=== PATIENT | female | born 1980 | race Caucasian/White ===

== ENCOUNTER 2017-08-08 16:43 | Observation (INO) | payer BC ==
[~2017-08-08] VITALS: Ht 162.6 cm; Wt 73.0 kg
[2017-08-08] MEDS ORDERED: ZOLPIDEM TARTRATE 5 MG TAB PO PRN (17:15)
--- NOTE | 2017-08-08 17:30 | HHI.HP ---
HPI Chief Complaint FUNNELING OF CERVIX, SHORT CERVIX Date Seen: Aug 08, 2017 Time Seen: 17:12 Travel History International Travel<30 Days: No Contact w/Intl Traveler<30Days: No Known Affected Area: No History of Present Illness HPI PT 20 WEEKS U/S SHOWED CX FUNNELING CERVIX SHORT AT 1 CM Weeks Gestation: 20 Para: 2 (1 26 WEEK STILLBORN) : 3 History Past Medical History Narrative Medical ACID REFLUX Obstetric History Obstetric History ADVANCED MATERNAL AGE PREVIOUS STILLBORN AT 26 WEEKS (2006) INCOMPETENT CERVIX (2014) Past Surgical History Narrative Surgical D &C X2 TEETH SURGERY Family History Narrative Family History PATERNAL GRANDMOTHER BREAST CANCER MATERNAL GRANDMOTHER BREAST CANCER FATHER HIGH BLOOD PRESSURE Social History Alcohol Use: No Tobacco Use: No Substance Abuse: No Allergies-Medications (Allergen,Severity, Reaction): Coded Allergies: Sulfa (Sulfonamide Antibiotics) (Unverified Allergy, Severe, HIVES, anaphylaxis, 01/15/17) peanut (Unverified Allergy, Intermediate, HIVES, 01/15/17) Home Meds Active Scripts Ibuprofen (Motrin 600 Mg Tab) 600 Mg Tab, 600 MG PO Q6H for pain, #30 TAB 1 Refill Prov:Renetta Martin MD 07/25/14 Oxycodone W/ Acetaminophen (Oxycodone/Acetaminophen 5-325 mg/5Ml) 1 Tab Tab, 1 TAB PO Q4H for pain, #20 TAB 0 Refills Prov:Renetta Martin MD 07/25/14 Oseltamivir Phosphate 75 mg (Tamiflu 75 mg) 75 Mg Cap, 1 CAP PO BID for 5 Days, CAP 0 Refills Prov:AIDEN ROBERTS MD R2 06/07/14 Polymyxin B-Trimethoprim (Polytrim) Op Tete, 1 DROP EACH EYE QID for 7 Days Prov:CHARO STRINGER M.D. 08/29/12 Review of Systems Except as stated in HPI: all other systems reviewed are Neg Physical Exam Narrative GENERAL: Well-nourished, well-developed patient. SKIN: Warm and dry. HEAD: Normocephalic and atraumatic. EYES: No scleral icterus. No injection or drainage. ENT: No nasal drainage Airway patent. NECK: Supple, trachea midline. No JVD. CARDIOVASCULAR: Regular rate and rhythm without murmurs, gallops, or rubs. RESPIRATORY: Breath sounds equal bilaterally. No accessory muscle use. ABDOMEN/GI: Abdomen soft, non-tender, bowel sounds present, no rebound, no guarding Gravid to [-20 weeks size GENITOURINARY: NO EXAMINED Membranes: [intact] Uterine Contractions: [NO] FHT's: PRESENT WITH DOPPLER EXTREMITIES: No cyanosis or edema. BACK: Nontender without obvious deformity. No CVA tenderness. NEUROLOGICAL: Awake and alert. Motor and sensory grossly within normal limits. Five out of 5 muscle strength in all muscle groups. Normal speech. Caprini VTE Risk Assessment Caprini VTE Risk Assessment: No/Low Risk (score <= 1) Caprini Risk Assessment Model Point Value = 1 Point Value = 2 Point Value = 3 Point Value = 5 Age 41-60 Minor surgery BMI > 25 kg/m2 Swollen legs Varicose veins or History of unexplained or recurrent spontaneous Oral contraceptives or hormone replacement Sepsis (< 1 month) Serious lung disease, including pneumonia (< 1 month) Abnormal pulmonary function Acute myocardial infarction Congestive heart failure (< 1 month) History of inflammatory bowel disease Medical patient at bed rest Age 61-74 Arthroscopic surgery Major open surgery (> 45 min) Laparoscopic surgery (> 45 min) Malignancy Confined to bed (> 72 hours) Immobilizing plaster cast Central venous access Age >= 75 History of VTE Family history of VTE Factor V Leiden Prothrombin [id number] Lupus anticoagulant Anticardiolipin antibodies Elevated serum homocysteine Heparin-induced thrombocytopenia Other congenital or acquired thrombophilia Stroke (< 1 month) Elective arthroplasty Hip, pelvis, or leg fracture Acute spinal cord injury (< 1 month) Prophylaxis Regimen Total Risk Factor Score Risk Level Prophylaxis Regimen 0-1 Low Early ambulation 2 Moderate Order ONE of the following: *Sequential Compression Device (SCD) *Heparin 5000 units SQ BID 3-4 Higher Order ONE of the following medications: *Heparin 5000 units SQ TID *Enoxaparin/Lovenox 40 mg SQ daily (WT < 150 kg, CrCl > 30 mL/min) *Enoxaparin/Lovenox 30 mg SQ daily (WT < 150 kg, CrCl > 10-29 mL/min) *Enoxaparin/Lovenox 30 mg SQ BID (WT < 150 kg, CrCl > 30 mL/min) AND/OR *Sequential Compression Device (SCD) 5 or more Highest Order ONE of the following medications: *Heparin 5000 units SQ TID (Preferred with Epidurals) *Enoxaparin/Lovenox 40 mg SQ daily (WT < 150 kg, CrCl > 30 mL/min) *Enoxaparin/Lovenox 30 mg SQ daily (WT < 150 kg, CrCl > 10-29 mL/min) *Enoxaparin/Lovenox 30 mg SQ BID (WT < 150 kg, CrCl > 30 mL/min) AND *Sequential Compression Device (SCD) Data Data Orders Orders 1/2 Ns + Kcl 20 Meq Inj (2 Ns + Kcl 20 (08/08/17 18:00) Zolpidem (Ambien) (08/08/17 17:15) Docusate Sodium-Senna (Shweta-Colace) (08/09/17 09:00) Instruction (08/08/17 17:00) Diet Regular Basic (08/08/17 Dinner) Diet Npo (08/09/17 Breakfast) Vital Signs (Adult) MELANIE.Q4H (08/08/17 17:00) Activity Bed Rest (08/08/17 17:00) Complete Blood Count With Diff (08/08/17 17:00) Urinalysis - C+S If Indicated (08/08/17 17:00) Specimen To Be Collected PRN (08/08/17 17:00) Instruction (08/08/17 17:00) Assessment/Plan Problem List: (1) Incompetent cervix ICD Codes: N88.3 - Incompetence of cervix uteri (2) AMA (advanced maternal age) multigravida 35+ ICD Codes: O09.529 - Supervision of elderly multigravida, unspecified trimester Qualifiers: Qualified Codes: O09.522 - Supervision of elderly multigravida, second trimester (3) 20 weeks gestation of ICD Codes: Z3A.20 - 20 weeks gestation of (4) Short cervix during in second trimester ICD Codes: O26.872 - Cervical shortening, second trimester Assessment and Plan PT HAD AN U/S IN THE OFFICE ON 08/08 CERVIX WAS FUNNELING AND FOUND TO BE 1 CM IN LENGTH PT WAS EVALUATED BY PND AND THEY AGREED WITH OFFICE ASSESSMENT PT BEING ADMITTED NOW TO THE UNIT AFTER TAKING CARE OF GETTING HER CHILDREN SETTLED PT TO BE ON BEDREST IN [place] IVF NPO AFTER MIDNIGHT CERCLAGE PLACEMENT TOMORROW PLAN DISCUSSED WITH PT AND Discharge Planning CONSIDER DC WHEN PT STABLE Ashwini Roper Aug 08, 2017 17:30
[2017-08-08 17:35] VITALS: BP 110/68; PULSE 82
[2017-08-08 17:36] VITALS: RESP 16; TEMP 98.6
[2017-08-08] MEDS: 1/2 NS + KCL 20 MEQ INJ 1,000 ML IV SCH (18:46)
[2017-08-08 19:20] LABS: AUTOMATED NEUTROPHIL # 8.7 TH/MM3 (1.8-7.7); BASOPHIL % 0.3 % (0.0-2.0); EOSINOPHIL # 0.1 TH/MM3 (0-0.4); EOSINOPHIL % 0.9 % (0.0-4.0); HEMOGLOBIN 12.6 GM/DL (11.6-15.3); LYMPHOCYTE # 2.6 TH/MM3 (1.0-4.8); MEAN CELL VOLUME 89.8 FL (80.0-100.0); MEAN CORPUSCULAR HEMOGLOBIN 31.4 PG (27.0-34.0); MEAN PLATELET VOLUME 8.1 FL (7.0-11.0); MONO % 6.6 % (0.0-8.0); MONOCYTE # 0.8 TH/MM3 (0-0.9); NEUT % 71.2 % (16.0-70.0); PLATELET COUNT 267 TH/MM3 (150-450); RED BLOOD COUNT 4.01 MIL/MM3 (4.00-5.30); RED CELL DISTRIBUTION WIDTH 13.6 % (11.6-17.2); WHITE BLOOD COUNT 12.3 TH/MM3 (4.0-11.0)
[2017-08-08 19:48] LABS: BILIRUBIN, URINE NEG (NEG); BLOOD, URINE TRACE (NEG); GLUCOSE,URINE NEG (NEG); KETONE, URINE NEG (NEG); MUCUS URINE FEW /lpf (OCC); NITRITE,URINE NEG (NEG); PH, URINE 5.5 (5.0-8.5); SQUAMOUS EPITHELIAL CELL URINE 3 /hpf (0-5); URINE COLOR YELLOW (YELLW/STRAW); URINE LEUKOCYTE ESTERASE NEG (NEG)
[2017-08-08 20:08] VITALS: BP 111/67; PULSE 80
[2017-08-08 20:15] VITALS: RESP 18; TEMP 98.1
[2017-08-09] VITALS (9 sets, daily range): BP systolic 107–116; BP diastolic 62–68; PULSE 79–87; RESP 16–18; TEMP 97.7–98.2; O2SAT 96
[2017-08-09] MEDS: 1/2 NS + KCL 20 MEQ INJ 1,000 ML IV SCH ×3 (02:48→16:27)
[2017-08-09] MEDS ORDERED: FAMOTIDINE 20 MG/2 ML VIAL ONE (07:54)
[2017-08-09] MEDS ORDERED: ceFAZolin INJ 1,000 MG VIAL IV ONE ×2 (08:47→12:00)
[2017-08-09] MEDS ORDERED: DOCUSATE SODIUM 50 MG/SENNA 8.6 MG TAB PO SCH (09:00)
[2017-08-09] MEDS ORDERED: DO NOT ADM ANY ANTICOAGULANT DRUGS PRN (09:06)
[2017-08-09] MEDS ORDERED: PANTOPRAZOLE SOD 40 MG DELAYED RELEASE TAB PO SCH (10:00)
[2017-08-09] MEDS: LACTATED RINGER'S 1000 ML INJ 1,000 ML IV SCH ×2 (10:00→20:00)
[2017-08-09] MEDS ORDERED: PHENYLEPH/NS 1000 MCG/10 ML SYR IV ONE (12:00)
--- NOTE | 2017-08-09 14:02 | MP ---
cc: Renetta Martin MD DATE OF OPERATION: 08/09/2017 PREOPERATIVE DIAGNOSIS: Cervical incompetence. POSTOPERATIVE DIAGNOSIS: Cervical incompetence. PROCEDURE PERFORMED: Cervical cerclage. ANESTHESIA: Spinal. SURGEON: Renetta Martin MD FINDINGS: The cervix was approximately 1 cm long, closed at the external os. There was bulging above this level. There was no bulging bag. There was no discharge. There were no signs of infection or discharge. COMPLICATIONS: None. COUNTS: Correct. ESTIMATED BLOOD LOSS: Minimal. DISPOSITION: The patient tolerated the procedure well and went to the recovery room in good condition. INDICATION FOR THE PROCEDURE: This is a patient who came for a routine ultrasound yesterday and was found to have funneling of her internal cervical os. There was approximately 1 cm left of closed cervix on a transvaginal ultrasound. My quality control lab tech and I both visualized this and sent her immediately over to the center for a second option, which confirmed our diagnosis. She was brought in last night, put in [facility], gave her IV fluids to make sure she was not henry and to get a cervical cerclage this morning. PROCEDURE IN DETAIL: The patient was taken to the operating room, identified by name band and verbally. She was given a spinal anesthetic, prepped and draped in the dorsal lithotomy position and a weighted speculum was placed in the vagina after the examination under anesthesia. The cervix was grasped and a pursestring suture with #[address] needle was placed. We thought about putting an extra stitch; however, the cervix was quite small and I did not want to get near that bulging portion where I knew there was funneling of the cervix to avoid the complication of rupturing her membranes. At this point, we terminated the procedure, instruments were removed. She tolerated the procedure well and went to the recovery room in good condition. MD SUE RaphaelV/SUKHDEV , 01:27 PM , 02:00 PM
--- NOTE | 2017-08-09 14:18 | HHI.DCPOC ---
Discharge Care Plan Diagnosis: (1) Incompetent cervix (2) AMA (advanced maternal age) multigravida 35+ Report Symptoms to Your Doctor -Temperature above 100.5 degrees -Redness, of incision or excessive or foul smelling drainage -Unusual pain or calf pain -Increased vaginal bleeding -Painful or difficulty urinating -Feelings of extreme sadness or anxiety after 2 weeks Goals to Promote Your Health * To prevent worsening of your condition and complications * To maintain your health at the optimal level Directions to Meet Your Goals Take your medications as prescribed Follow your dietary instruction Follow activity as directed Ensure plenty of rest for recovery Drink fluids for hydration Keep your appointments as scheduled Take your immunizations and boosters as scheduled If your symptoms worsen call your PCP, if no PCP go to Urgent Care Center or Emergency Room Smoking is Dangerous to Your Health. Avoid second hand smoke Call the 24-hour crisis hotline for domestic abuse at Renetta Martin MD Aug 09, 2017 14:18
[2017-08-09] MEDS ORDERED: ACETAMINOPHEN/HYDROcodone 325 MG/5 MG TAB PO PRN (15:15)
[2017-08-09] MEDS: ACETAMINOPHEN 325 MG TAB PO PRN ×2 (20:15→21:15)
[2017-08-10 01:57] VITALS: BP 94/49; PULSE 79; RESP 18; TEMP 98.1
[2017-08-10] MEDS: 1/2 NS + KCL 20 MEQ INJ 1,000 ML IV SCH (02:00)
[2017-08-10 06:16] VITALS: RESP 18; TEMP 98.1
[2017-08-10 06:17] VITALS: BP 109/69; PULSE 79
[2017-08-10 08:08] VITALS: TEMP 98.4
[2017-08-10 08:09] VITALS: BP 96/55; PULSE 82
--- NOTE | 2017-08-10 09:08 | PD.OB.ANTE ---
Subjective Diagnosis: (1) Incompetent cervix (2) AMA (advanced maternal age) multigravida 35+ (3) 20 weeks gestation of (4) Short cervix during in second trimester Interval History s/p cerclage placement POD #1 , doing well on bedrest Objective Vital Signs Vital Signs Date Time Temp Pulse Resp B/P (MAP) Pulse Ox O2 Delivery O2 Flow Rate FiO2 08/10/17 08:09 82 96/55 (69) 08/10/17 08:08 98.4 08/10/17 06:17 79 109/69 (82) 08/10/17 06:16 98.1 18 08/10/17 01:57 98.1 18 08/10/17 01:57 79 94/49 (64) 08/09/17 19:48 82 18 112/68 (83) 08/09/17 19:48 98.2 08/09/17 17:24 98.0 08/09/17 17:23 85 109/63 (78) 08/09/17 13:00 97.7 08/09/17 12:36 16 08/09/17 12:00 79 107/62 (77) 08/09/17 11:50 75 16 96 Room Air 08/09/17 11:45 97.8 76 16 98/62 (74) 96 Room Air 08/09/17 11:30 76 16 95/60 (72) 97 Room Air 08/09/17 11:15 74 16 99/62 (74) 97 Room Air 08/09/17 10:45 75 16 100/63 (75) 97 Room Air 08/09/17 10:30 78 16 99/60 (73) 97 Room Air 08/09/17 10:15 75 16 101/60 (74) 96 Room Air 08/09/17 10:00 78 16 99/59 (72) 96 Room Air 08/09/17 09:45 77 16 98/59 (72) 96 Room Air 08/09/17 09:30 79 16 101/65 (77) 98 Room Air 08/09/17 09:15 77 15 98/63 (75) 98 Room Air Physical Exam GENERAL: Well-nourished, well-developed patient. CARDIOVASCULAR: Regular rate and rhythm without murmurs, gallops, or rubs. RESPIRATORY: Breath sounds equal bilaterally. No accessory muscle use. ABDOMEN/GI: Abdomen soft, non-tender. Fundus: [-] GENITOURINARY: External Genitalia: intact and normal in appearance Cervix: [-] deferred Dilatation: [-] Effacement: [-] Station: [-] Presentation: [-] Membranes: [-] Uterine Contractions: [-] FHT's: Category: [-] Baseline: [-] Reactive: [-] Variability: [-] Decels: [-] EXTREMITIES: No cyanosis or edema, non-tender, without signs of DVT. Assessment and Plan Problem List: (1) Incompetent cervix ICD Codes: N88.3 - Incompetence of cervix uteri (2) AMA (advanced maternal age) multigravida 35+ ICD Codes: O09.529 - Supervision of elderly multigravida, unspecified trimester Qualifiers: Qualified Codes: O09.522 - Supervision of elderly multigravida, second trimester (3) 20 weeks gestation of ICD Codes: Z3A.20 - 20 weeks gestation of (4) Short cervix during in second trimester ICD Codes: O26.872 - Cervical shortening, second trimester Assessment and Plan PT HAD AN U/S IN THE OFFICE ON 08/08 CERVIX WAS FUNNELING AND FOUND TO BE 1 CM IN LENGTH PT WAS EVALUATED BY PND AND THEY AGREED WITH OFFICE ASSESSMENT s/p cerclage POD #1, discharge home on complete bedrest f/u with Dr Mraio Hoffmann 08/13 Peggy Wallace MD Aug 10, 2017 09:08
== END 2017-08-10 09:39 | disposition home or self-care (01) ==
LOC: H2EB 16:43
PROVIDERS: ADMIT Obstetrics & Gynecology; ATTEND Obstetrics & Gynecology
DX: O34.32 Maternal care for cervical incompetence, second trimester (principal); O26.872 Cervical shortening, second trimester; O09.522 Supervision of elderly multigravida, second trimester; Z3A.20 20 weeks gestation of pregnancy
CPT/HCPCS: 00948; 59320; 81001; 85025; 86850; 86900; 86901; 96361; 96365; 96366; G0378; J0690; J2370; J7120

== ENCOUNTER → 2017-08-08 | Outpatient (CLI) | payer BC ==
[~2017-08-08] MED LIST: IBUP600 PO; OSEL75 PO; OXYC1SOL5 PO; POLYSOL6 EACH EYE
== END ==
LOC: HPND 10:16
PROVIDERS: ATTEND Obstetrics & Gynecology
DX: O26.872 Cervical shortening, second trimester (principal)
CPT/HCPCS: 76816; 76817

== ENCOUNTER 2017-10-15 09:31 | Emergency (ER) | payer BC ==
[2017-10-15 09:53] VITALS: BP 125/74; PULSE 91
[2017-10-15] MEDS ORDERED: LACTATED RINGER'S 1000 ML INJ 1,000 ML IV ONE (10:15)
[2017-10-15] MEDS ORDERED: ONDANSETRON HCL 4 MG/2 ML VIAL IV PUSH ONE (10:15)
--- NOTE | 2017-10-15 10:34 | PD ---
HPI Chief Complaint Nausea, vomiting and diarrhea Date Seen: October 15, 2017 Time Seen: 10:10 Travel History International Travel<30 Days: No Contact w/Intl Traveler<30Days: No Known Affected Area: No History of Present Illness HPI 37 y/o female at 30/1 weeks gestation presents with 7 hour history of nausea, vomiting, and diarrhea. She reports 15 episodes of vomiting and 5 episodes of diarrhea. Vomitus ranges from undigested food particles to yellow bile, has not noticed blood. Denies blood in the stool. She has tried protonix without relief of symptoms. Unable to keep down any fluids for hydration. Also had epigastric pain that has since resolved. She has had no vomiting, diarrhea or pain for the last 30 minutes. She currently feels "okay". She reports that she had meatballs from [employer] for the first time. Her 3 year old daughter who also consumed meatballs also has diarrhea. Denies lightheadedness, dizziness or headache. No vaginal bleeding or contractions. Reports good movements. Note completed by Tesha Bruno, MS4 Discussed with Dr. Calderon Weeks Gestation: 30 Para: 1 : 3 History Past Medical History Medical History: Denies Significant Hx Obstetric History Obstetric History 1st resulted in stillbirth at 26 weeks 2nd was full-term, . No complications during or birthing process. Current , cerclage placed at 20 weeks for shortening/funneling of cervix. Past Surgical History Narrative Surgical Dental surgery D&C x2 Family History Narrative Family History Breast cancer (paternal grandmother) Hypertension (father) Social History Narrative Social History Social drinker. Alcohol Use: Yes Tobacco Use: No Substance Abuse: No Allergies-Medications (Allergen,Severity, Reaction): Coded Allergies: Sulfa (Sulfonamide Antibiotics) (Unverified Allergy, Severe, HIVES, anaphylaxis, 01/15/17) peanut (Unverified Allergy, Intermediate, HIVES, 01/15/17) Home Meds Active Scripts Ondansetron Odt (Zofran Odt) 4 Mg Tab, 4 MG SL Q6HR Y for Nausea/Vomiting, #30 TAB 0 Refills Prov:Gaurav Martinez MD, R1 10/15/17 Ibuprofen (Motrin 600 Mg Tab) 600 Mg Tab, 600 MG PO Q6H for pain, #30 TAB 1 Refill Prov:Renetta Martin MD 07/25/14 Oxycodone W/ Acetaminophen (Oxycodone/Acetaminophen 5-325 mg/5Ml) 1 Tab Tab, 1 TAB PO Q4H for pain, #20 TAB 0 Refills Prov:Renetta Martin MD 07/25/14 Oseltamivir Phosphate 75 mg (Tamiflu 75 mg) 75 Mg Cap, 1 CAP PO BID for 5 Days, CAP 0 Refills Prov:AIDEN ROBERTS MD R2 06/07/14 Polymyxin B-Trimethoprim (Polytrim) Op Ette, 1 DROP EACH EYE QID for 7 Days Prov:CHARO STRINGER M.D. 08/29/12 Narrative Medication Protonix 40mg daily for acid reflux Review of Systems Except as stated in HPI: all other systems reviewed are Neg Physical Exam Narrative GENERAL: Well-nourished, well-developed patient. SKIN: Warm and dry. HEAD: Normocephalic and atraumatic. EYES: No scleral icterus. No injection or drainage. ENT: No nasal drainage noted. Mucous membranes pink. Airway patent. NECK: Supple, trachea midline. No JVD. CARDIOVASCULAR: Regular rate and rhythm without murmurs, gallops, or rubs. RESPIRATORY: Breath sounds equal bilaterally. No accessory muscle use. ABDOMEN/GI: Abdomen soft, non-tender, bowel sounds present, no rebound, no guarding Gravid to 30 weeks size GENITOURINARY: Membranes: intact Uterine Contractions: None FHT's: Baseline: 140 Reactive: yes Variability: moderate Decels: none EXTREMITIES: No cyanosis or edema. BACK: Nontender without obvious deformity. No CVA tenderness. NEUROLOGICAL: Awake and alert. Motor and sensory grossly within normal limits. Five out of 5 muscle strength in all muscle groups. Normal speech. Data Data Vital Signs Reviewed: Yes [facility] Medical Record Reviewed: Yes Plan 37 y/o female at 30/1 weeks gestation presenting with nausea, vomiting and diarrhea. 1) Will give patient 1L of LR and Zofran for nausea 2) F/u CBC, CMP and UA 3) FHT reactive with moderate variability 4) Continue to monitor vitals and reassess N/V/D after liter bolus On reevaluation pt is feeling well, no N/V or diarrhea since she has been in the ob triage. Pt is tolerating liquids with no issues Plan to discharge pt with prescription of zofran pt to f/u with her OB doctor Diagnosis Diagnosis: Primary Impression: 30 weeks gestation of Additional Impression: Nausea & vomiting Disposition: 01 DISCHARGE HOME Condition: Stable Scripts Ondansetron Odt (Zofran Odt) 4 Mg Tab 4 MG SL Q6HR Y for Nausea/Vomiting, #30 TAB 0 Refills Prov: Gaurav Martinez MD, R1 10/15/17 Patient Instructions: Nausea and Vomiting in (ED), General Instructions Gaurav Martinez MD, R1 October 15, 2017 10:34
[2017-10-15 10:57] LABS: AUTOMATED NEUTROPHIL # 15.9 TH/MM3 (1.8-7.7); BASOPHIL # 0.1 TH/MM3 (0-0.2); BASOPHIL % 0.3 % (0.0-2.0); EOSINOPHIL % 0.2 % (0.0-4.0); HEMATOCRIT 38.5 % (35.0-46.0); LYMPH % 7.7 % (9.0-44.0); LYMPHOCYTE # 1.4 TH/MM3 (1.0-4.8); MEAN CELL VOLUME 89.4 FL (80.0-100.0); MEAN CORPUSCULAR HEMOGLOBIN 30.2 PG (27.0-34.0); MEAN CORPUSCULAR HGB CONC 33.8 % (32.0-36.0); MEAN PLATELET VOLUME 8.1 FL (7.0-11.0); MONO % 3.5 % (0.0-8.0); MONOCYTE # 0.6 TH/MM3 (0-0.9); NEUT % 88.3 % (16.0-70.0); PLATELET COUNT 313 TH/MM3 (150-450); RED BLOOD COUNT 4.31 MIL/MM3 (4.00-5.30); RED CELL DISTRIBUTION WIDTH 13.9 % (11.6-17.2)
[2017-10-15] MEDS ORDERED: ONDANSETRON HCL 4 MG/2 ML VIAL ONE (11:02)
[2017-10-15 11:12] LABS: BILIRUBIN, URINE NEG (NEG); BLOOD, URINE NEG (NEG); GLUCOSE,URINE NEG (NEG); KETONE, URINE TRACE mg/dL (NEG); MUCUS URINE FEW /lpf (OCC); NITRITE,URINE NEG (NEG); PH, URINE 5.5 (5.0-8.5); SQUAMOUS EPITHELIAL CELL URINE 5 /hpf (0-5); URINE COLOR YELLOW (YELLW/STRAW); URINE LEUKOCYTE ESTERASE NEG (NEG)
[2017-10-15 11:16] VITALS: RESP 17; TEMP 98.1
[2017-10-15 11:32] LABS: ALBUMIN 2.8 GM/DL (3.4-5.0); ALKALINE PHOSPHATASE 70 U/L (45-117); ALT (GPT) 10 U/L (10-53); AST (GOT) 14 U/L (15-37); BICARBONATE 23.7 MEQ/L (21.0-32.0); BLOOD UREA NITROGEN 14 MG/DL (7-18); CALCIUM 8.3 MG/DL (8.5-10.1); CHLORIDE 109 MEQ/L (98-107); CREATININE 0.51 MG/DL (0.50-1.00); GLOMERULAR FILTRATION RATE 137 ML/MIN (>89); GLUCOSE,RANDOM 80 MG/DL (74-106); SODIUM (NA) 139 MEQ/L (136-145); TOTAL BILIRUBIN ADULT 0.3 MG/DL (0.2-1.0); TOTAL PROTEIN 7.5 GM/DL (6.4-8.2)
[2017-10-15] MEDS ORDERED: ZOFR4TAB3 SL (11:41)
== END 2017-10-15 13:00 | disposition home or self-care (01) ==
LOC: HOBED 09:31
DX: O26.893 Other specified pregnancy related conditions, third trimester (principal); R19.7 Diarrhea, unspecified; O21.2 Late vomiting of pregnancy; Z3A.30 30 weeks gestation of pregnancy
CPT/HCPCS: 80053; 81001; 85025; 96374; 99284; J2405; J7120

== ENCOUNTER 2017-12-23 12:58 | Inpatient (IN) ==
[2017-12-23] MEDS ORDERED: Sodium Chlor 0.9% Inj 500 ML IV.SIG PRN (13:46)
[2017-12-23] MEDS ORDERED: fentaNYL Citrate Inj 100 MCG/2 ML Ampul IV.PUSH PRN ×2 (13:46)
[2017-12-23] MEDS ORDERED: Sod Chloride 0.9% Inj 1,000 ML IV.CONT PRN (13:46)
[2017-12-23] MEDS ORDERED: Oxytocin 30 Units/500ml Premix 30 UNITS/500 ML BAG IV.SIG ONE (13:46)
[2017-12-23] MEDS ORDERED: Naloxone Inj 0.4 MG/ML Vial IV.PUSH PRN ×2 (13:46→15:06)
--- NOTE | 2017-12-23 13:46 | ED ---
History of Present Illness Primary Care Physician: Micaela Peterson Chief Complaint: Contractions History of Present Illness: 37-year-old who is at 40 weeks gestation started henry this morning around 8 AM. She was seen in the office and cervix was noted to be 4 cm and her physician told her to come back to the office of her contractions were to continue or worsen. They have continued and they have come closer together along with a little bit of mucousy discharge. Patient has had a history of 2 prior vaginal deliveries with 1 demise at 26 weeks and an additional spontaneous vaginal delivery in 2015. She has had a cerclage this that was removed at 20 weeks but otherwise uncomplicated she is group B strep negative Weeks Gestation:: 40 Para: 2 : 3 Review of Systems All other systems reviewed negative except as [facility] - Medical / Surgical Hx Neg / Unobtainable Medical Problems Denied: Yes Surgical History: No Previous Surgery - Tobacco History Second Hand Smoke Exposure: No Smoking Status: Never smoker - Alcohol History How Often Do You Have a Drink Containing Alcohol: Never - Substance Use History Substance History: No History of Abuse - Travel History History of Recent Travel: No Recent Travel in the [place] Within the Last 8 Weeks: No Recent Travel Out of the Country Within the Last 8 Weeks: No Medications and Allergies Allergies Allergy/AdvReac Type Severity Reaction Status Date / Time Sulfa (Sulfonamide Allergy Severe HIVES, Verified 12/23/17 13:22 Antibiotics) anaphylaxis peanut Allergy Intermediate HIVES Unverified 01/15/17 15:09 Exam Vital signs: Intake & Output 12/22/17 12/23/17 12/23/17 18:59 06:59 18:59 Weight 83 kg Narrative: GENERAL: Well-nourished, well-developed patient. SKIN: Warm and dry. HEAD: Normocephalic and atraumatic. EYES: No scleral icterus. No injection or drainage. ENT: No nasal drainage noted. Mucous membranes pink. Airway patent. NECK: Supple, trachea midline. No JVD. CARDIOVASCULAR: Regular rate and rhythm without murmurs, gallops, or rubs. RESPIRATORY: Breath sounds equal bilaterally. No accessory muscle use. BREASTS: Bilateral exam showed no masses , no retractions, no nipple discharge. ABDOMEN/GI: Abdomen soft, non-tender, bowel sounds present, no rebound, no guarding Gravid to [-39] weeks size Fundal Height: [-] GENITOURINARY: External Genitalia: intact and normal in appearance BUS glands: [-Normal] Cervix: [-Mid position] Dilatation: [-5-6] Effacement: [-90] Station: [-2-] Presentation: [-Vertex] Membranes: [intact or ruptured] intact Uterine Contractions: [-] Every 3 FHT's: Category: [-] 1 Baseline: [-] 140 Reactive: [-] Moderate Variability: [-] Moderate Decels: [-] Absent EXTREMITIES: No cyanosis or edema. BACK: Nontender without obvious deformity. No CVA tenderness. NEUROLOGICAL: Awake and alert. Motor and sensory grossly within normal limits. Five out of 5 muscle strength in all muscle groups. Normal speech. Assessment and Plan - Diagnosis (1) Advanced maternal age during in third trimester Status: Acute (2) 40 weeks gestation of Code(s): Z3A.40 - 40 weeks gestation of Status: Acute (3) Irregular uterine contractions Code(s): O62.2 - Other uterine inertia Status: Acute Discharge Plan - Discharge Disposition Patient Disposition: 30 Still Patient - Physicians Team ED Provider: Reanna Calderon Primary Care Provider: Micaela Peterson
[2017-12-23] MEDS ORDERED: Citric Acid/Sodium Citrate Liq 30 ML UDC PO SCH (14:00)
[2017-12-23 14:26] LABS: Baso # (Auto) 0.1 th/mm3 (0.0-0.2); Baso % (Auto) 0.4 % (0.0-2.0); Eos % (Auto) 0.2 % (0.0-4.0); Hemoglobin 12.6 gm/dL (11.6-15.3); Lymph # (Auto) 1.8 th/mm3 (1.0-4.8); Lymph % (Auto) 13.3 % (9.0-44.0); Mean Corpuscular HGB Conc 33.1 % (32.0-36.0); Mean Corpuscular Hemoglobin 28.7 pg (27.0-34.0); Mean Corpuscular Volume 86.8 fL (80.0-100.0); Mean Platelet Volume 7.9 fL (7.0-11.0); Mono # (Auto) 0.8 th/mm3 (0.0-0.9); Mono % (Auto) 6.1 % (0.0-8.0); Neut # (Auto) 10.8 th/mm3 (1.8-7.7); Platelet Count 329 th/mm3 (150-450); Red Blood Count 4.37 mil/mm3 (4.00-5.30); Red Cell Distribution Width 15.1 % (11.6-17.2); White Blood Count 13.5 th/mm3 (4.0-11.0)
[2017-12-23 14:28] LABS: Bilirubin,Urine Negative (Negative); Clarity,Urine Hazy (Clear); Color,Urine Yellow (Yellw/Straw); Glucose,Urine (UA) Negative (Negative); Leukocyte Esterase,Urine Trace (Negative); Mucus,Urine Few /lpf (Occasional); Nitrite,Urine Negative (Negative); Squamous Epithelial Cell,Urine 7 /hpf (0-5)
[2017-12-23] MEDS ORDERED: fentaNYL 2MCG-Bupiv 0.125% Epi 150 ML EPIDURAL ONE (14:30)
[2017-12-23 14:33] LABS: Amphetamine Urine With Conf Neg (Neg); Benzodiazepine Urine With Conf Neg (Neg)
[2017-12-23] MEDS ORDERED: Lidocaine PF 1% Inj 30 ML Vial ONE (14:45)
[2017-12-23] MEDS ORDERED: Ibuprofen 400 MG Tablet PO PRN (15:06)
[2017-12-23] MEDS ORDERED: Bisacodyl 10 MG Supp RECTAL PRN (15:06)
[2017-12-23] MEDS ORDERED: Acetaminophen 325 MG Tablet PO PRN (15:06)
[2017-12-23] MEDS ORDERED: Witch Hazel 50%/Glyderin 12.5% 40 Pad Jar RECTAL PRN (15:06)
[2017-12-23] MEDS ORDERED: Zolpidem Tartrate 5 MG Tablet PO PRN (15:06)
[2017-12-23] MEDS ORDERED: Benzocaine 20% Top Spray 60 ML Can TOPICAL PRN (15:06)
--- NOTE | 2017-12-23 15:06 | P.OBDELI ---
Weeks Gestation: 40 Patient Started Active Labor: Yes Medical Induction of Labor: No Artificial Rupture of Membrane: Yes Artificial ROM Date: 12/23/17 Artificial ROM Time: 14:50 Anesthesia: Epidural Episiotomy: none Vaginal Delivery: Normal Presentation: Occiput anterior Nuchal Cord: x1 Placenta: Spontaneous delivery, Intact, Uterus explored +, 3 vessel cord Laceration: None Estimated blood loss (mL): 350 Female A score (1 min): 9 score (5 min): 9 (beautiful quick delivery of Maria Dolores. Very fast labor.)
[2017-12-23] MEDS ORDERED: Measles/Mumps/Rubella Vaccine Inj 0.5 ML Vial SQ ONE (16:00)
[2017-12-23] MEDS ORDERED: Diphtheria/Tetanus/Pertussis Vaccine Inj 0.5 ML Syringe IM ONE (16:00)
[2017-12-23] MEDS ORDERED: Oxytocin 30 Units/500ml Premix 30 UNITS/500 ML BAG IV.CONT SCH (16:00)
[2017-12-23] MEDS ORDERED: fentaNYL 2MCG-Bupiv 0.125% Epi 150 ML EPIDURAL PRN (18:35)
[2017-12-23] MEDS ORDERED: fentaNYL Citrate Inj 100 MCG/2 ML Ampul EPIDURAL ONE (18:35)
[2017-12-24] MEDS ORDERED: CALCIUM PO SCH (09:00)
[2017-12-24] MEDS: Senna/Docusate Sodium 8.6/50 MG Tablet PO SCH ×3 (10:24→22:07)
--- NOTE | 2017-12-24 12:56 | P.PNOB ---
Subjective Post day: 1 Objective Vital Signs/I&O: Vital Signs 12/23/17 13:38 12/23/17 13:45 12/23/17 14:40 Temperature 98.1 F Pulse Rate 81 85 Respiratory Rate 18 Blood Pressure 127/77 133/92 H Pulse Oximetry 12/23/17 14:56 12/23/17 15:00 12/23/17 15:15 Temperature Pulse Rate 92 H 93 H Respiratory Rate 20 18 Blood Pressure 141/86 H 99/68 L Pulse Oximetry 12/23/17 15:45 12/23/17 16:00 12/23/17 16:15 Temperature 97.5 F L Pulse Rate 91 H 89 Respiratory Rate 18 Blood Pressure 100/65 105/65 Pulse Oximetry 12/23/17 16:17 12/23/17 16:30 12/23/17 17:29 Temperature 98.5 F Pulse Rate 76 75 83 Respiratory Rate 18 Blood Pressure 98/71 L 105/61 118/70 Pulse Oximetry 12/23/17 20:00 12/24/17 08:00 12/24/17 08:21 Temperature 98.3 F 98.3 F 98.7 F Pulse Rate 82 84 85 Respiratory Rate 17 18 18 Blood Pressure 108/71 110/69 110/69 Pulse Oximetry 98 Intake & Output 12/23/17 12/24/17 12/24/17 18:59 06:59 18:59 Intake Total 500 / 500 Balance 500 / 500 Weight 83 kg Intake: IV 500 / 500 Pitocin 30 Units/NS 500 ml 500 / 500 Premix 30 units In 500 ml @ 100 mls/hr IV.CONT Q5H [facility] Rx#: [id number] Result Diagrams: 12/23/17 14:10 Objective Remarks: GENERAL: Well-nourished, well-developed patient. CARDIOVASCULAR: Regular rate and rhythm without murmurs, gallops, or rubs. RESPIRATORY: Breath sounds equal bilaterally. No accessory muscle use. ABDOMEN/GI: Abdomen soft, non-tender. Fundus: Firm, non-tender at umbilicus. GENITOURINARY: Light to moderate bleeding. EXTREMITIES: No cyanosis or edema, non-tender, without signs of DVT. Medications and IVs: Active Medications Acetaminophen (Tylenol) 650 mg PO Q4H PRN PRN Reason: PAIN SCALE 1 TO 2 Al Hydroxide/Mg Hydroxide (Milk Of Magnesia Liq) 30 ml PO Q12H PRN PRN Reason: Mild Constipation Benzocaine (Americaine 20% Top [place]) 1 spray TOPICAL Q4H PRN PRN Reason: For Perineum Discomfort Bisacodyl (Dulcolax Supp) 10 mg RECTAL DAILY PRN PRN Reason: SEVERE CONSITIPATION Ephedrine Sulfate (Ephedrine/Ns Syringe) 10 mg IV.PUSH UNSCH PRN PRN Reason: SEE LABEL COMMENTS Stop: 12/24/17 18:35 Fentanyl/Bupivacaine/Sodium Chlor (Fentanyl 2 Mcg-Bupiv 0.125% Epi) 150 mls @ 10 mls/hr EPIDURAL PRN PRN PRN Reason: for Labor Pain Lactulose (Lactulose Liq) 30 ml PO DAILY PRN PRN Reason: SEVERE CONSITIPATION Miscellaneous Information (Misc Information) 1 each OTHER UNSCH PRN PRN Reason: SEE LABEL COMMENTS Stop: 12/24/17 18:35 Miscellaneous Information (Misc Information) 1 each OTHER UNSCH PRN PRN Reason: SEE LABEL COMMENTS Stop: 12/24/17 18:35 Naloxone HCl (Narcan Inj) 0.1 mg IV.PUSH Q2M PRN PRN Reason: for opiate reversal Ondansetron HCl (Zofran Odt) 4 mg PO Q6H PRN PRN Reason: NAUSEA OR VOMITING Pantoprazole Sodium (Protonix) 40 mg PO DAILY [facility] Last Admin: 12/24/17 10:24 Dose: 40 mg Senna/Docusate Sodium (Shweta-Colace) 1 tab PO BID [facility] Last Admin: 12/24/17 10:26 Dose: 1 tab Sennosides (Senokot) 17.2 mg PO Q12H PRN PRN Reason: Moderate Constipation Sodium Chloride (Ns Flush) 2 ml IV.FLUSH UNSCH PRN PRN Reason: FLUSH AFTER USING IV ACCESS Sodium Chloride (Ns Flush) 2 ml IV.FLUSH BID [facility] Last Admin: 12/24/17 10:24 Dose: 2 ml Witch [place]/Glycerin (Tucks Pads) 1 applicatio RECTAL QID PRN PRN Reason: HEMORRHOIDS Zolpidem Tartrate (Ambien) 5 mg PO HS PRN PRN Reason: SLEEP Assessment and Plan - Diagnosis (1) (normal spontaneous vaginal delivery) Code(s): O80 - Encounter for full-term uncomplicated delivery Status: Acute - Plan pt doing well pain well managed with oral pain medication bonding well with infant baby having u/s for deep dimple on spine routine care Discharge Planning: dc home today if baby is cleared
--- NOTE | 2017-12-24 13:03 | P.DS ---
Date of admission: 12/23/17 13:43 Primary care physician: Micaela Peterson Attending physician on discharge: Aime Martin Anticipated date of discharge: 12/24/17 Brief History from admission: term labor routine care DS: Diagnosis - Discharge Diagnosis (1) (normal spontaneous vaginal delivery) Status: Acute DS: Summary Hospital Course: term female routine care - Time Spent with Patient Total time spent providing and/or coordinating discharge services: Exam Vital signs: Vital Signs 12/23/17 13:38 12/23/17 13:45 12/23/17 14:40 Temperature 98.1 F Pulse Rate 81 85 Respiratory Rate 18 Blood Pressure 127/77 133/92 H Pulse Oximetry 12/23/17 14:56 12/23/17 15:00 12/23/17 15:15 Temperature Pulse Rate 92 H 93 H Respiratory Rate 20 18 Blood Pressure 141/86 H 99/68 L Pulse Oximetry 12/23/17 15:45 12/23/17 16:00 12/23/17 16:15 Temperature 97.5 F L Pulse Rate 91 H 89 Respiratory Rate 18 Blood Pressure 100/65 105/65 Pulse Oximetry 12/23/17 16:17 12/23/17 16:30 12/23/17 17:29 Temperature 98.5 F Pulse Rate 76 75 83 Respiratory Rate 18 Blood Pressure 98/71 L 105/61 118/70 Pulse Oximetry 12/23/17 20:00 12/24/17 08:00 12/24/17 08:21 Temperature 98.3 F 98.3 F 98.7 F Pulse Rate 82 84 85 Respiratory Rate 17 18 18 Blood Pressure 108/71 110/69 110/69 Pulse Oximetry 98 Intake & Output 12/23/17 12/24/17 12/24/17 18:59 06:59 18:59 Intake Total 500 / 500 Balance 500 / 500 Weight 83 kg Intake: IV 500 / 500 Pitocin 30 Units/NS 500 ml 500 / 500 Premix 30 units In 500 ml @ 100 mls/hr IV.CONT Q5H [facility] Rx#: [id number] Narrative: see post note Results Procedures completed during hospitalization: Labs on day of discharge: Labs from last 24 hours 12/23/17 12/23/17 12/23/17 14:10 14:10 13:40 WBC 13.5 H RBC 4.37 Hgb 12.6 Hct 38.0 MCV 86.8 MCH 28.7 MCHC 33.1 RDW 15.1 Plt Count 329 MPV 7.9 Neut % (Auto) 80.0 H Lymph % (Auto) 13.3 [place] % (Auto) 6.1 Eos % (Auto) 0.2 Baso % (Auto) 0.4 Neut # (Auto) 10.8 H Lymph # (Auto) 1.8 [place] # (Auto) 0.8 Eos # (Auto) 0.0 Baso # (Auto) 0.1 WBC Differential . Differential Comment Auto diff final Urine Color Urine Clarity Urine pH Ur Specific [place] Urine Protein Urine Glucose (UA) Urine Ketones Urine Occult Blood Urine Nitrate Urine Bilirubin Urine Urobilinogen Ur Leukocyte Esterase Urine RBC Urine WBC Ur Squamous Epith Cells Urine Mucus Micro UA Comment Urine Culture Comments Urine Opiates Screen Ur Buprenorphine Pending Ur [place] Screen Pending Urine Oxycodone Pending Ur Methadone Pending U Hydromorphone Confirm Pending Urine Fentanyl Pending Ur Barbiturates Screen Urine Gabapentin Pending Ur Phencyclidine (PCP) Pending Urine MDPV Pending Ur Amphetamine Screen Ur MDMA & Metabolites Pending U Benzodiazepines Scrn Urine Cocaine Screen U Cannabinoids Screen Ur Synth THC (K2) Pending Blood Type A Positive 12/23/17 12/23/17 13:40 13:40 WBC RBC Hgb Hct MCV MCH MCHC RDW Plt Count MPV Neut % (Auto) Lymph % (Auto) [place] % (Auto) Eos % (Auto) Baso % (Auto) Neut # (Auto) Lymph # (Auto) [place] # (Auto) Eos # (Auto) Baso # (Auto) WBC Differential Differential Comment Urine Color Yellow Urine Clarity Hazy H Urine pH 7.0 Ur Specific [place] 1.020 Urine Protein Negative Urine Glucose (UA) Negative Urine Ketones Negative Urine Occult Blood Small H Urine Nitrate Negative Urine Bilirubin Negative Urine Urobilinogen Less than 2 Ur Leukocyte Esterase Trace H Urine RBC 5 H Urine WBC 14 H Ur Squamous Epith Cells 7 Urine Mucus Few H Micro UA Comment Culture indicated Urine Culture Comments Culture indicated Urine Opiates Screen Neg Ur Buprenorphine Ur [place] Screen Urine Oxycodone Ur Methadone U Hydromorphone Confirm Urine Fentanyl Ur Barbiturates Screen Neg Urine Gabapentin Ur Phencyclidine (PCP) Urine MDPV Ur Amphetamine Screen Neg Ur MDMA & Metabolites U Benzodiazepines Scrn Neg Urine Cocaine Screen Neg U Cannabinoids Screen Neg Ur Synth THC (K2) Blood Type Discharge Plan - Discharge Disposition Patient Disposition: 01 Discharge Home - Discharge Condition Condition: Good - Discharge Order Discharge Orders: Discharge Order (Routine); Ordered 12/24/17 Ordered By: 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
[2017-12-25] MEDS: Senna/Docusate Sodium 8.6/50 MG Tablet PO SCH (08:06)
== END 2017-12-25 13:46 | disposition home or self-care (01) ==
LOC: HOBED 12:58 → H2E 13:43 → H1EA 17:05
PROVIDERS: ADMIT Obstetrics & Gynecology; ATTEND Obstetrics & Gynecology